=== PATIENT | female | born 2000 | race Caucasian/White ===

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

== ENCOUNTER → 2019-04-04 | Outpatient (CLI) | payer BC ==
[2019-04-04 15:30] LABS: Partial Thromboplastin Time 24.3 sec (22.0-30.0); Prothrombin Time 10.6 sec (9.0-12.0)
== END | disposition home or self-care (01) ==
LOC: LABWHC1 14:14
PROVIDERS: ATTEND Nurse Practitioner Family
DX: Z13.0 Encounter for screening for diseases of the blood and blood-forming organs and certain disorders involving the immune mechanism (principal); Z83.2 Family history of diseases of the blood and blood-forming organs and certain disorders involving the immune mechanism
CPT/HCPCS: 36415; 81241; 85610; 85730

== ENCOUNTER → 2019-04-27 | Outpatient (CLI) | payer BC ==
--- NOTE | 2019-04-27 16:57 | US ---
EXAMINATION TYPE: US pelvic complete DATE OF EXAM: 04/27/2019 COMPARISON: NONE CLINICAL HISTORY: E28.2 polycystic ovarian disease. Patient stated has not had menstrual cycle since 01-22-2019; patient not on hormones nor other medication; HT 5'4", WT 230lbs. TECHNIQUE: Transabdominal (TA). Transabdominal sonographic images of the pelvis were acquired. Date of LMP: 01/22/2019 EXAM MEASUREMENTS: Uterus: 7.6 x 3.8 x 2.8 cm Endometrial Stripe: 1.0 cm Right Ovary: 2.6 x 1.4 x 1.5 cm Left Ovary: 3.0 x 2.2 x 1.7 cm 1. Uterus: Anteverted 2. Endometrium: proliferative phase appearance to endometrium; unable to correlate thickness with No vember 2019 LMP 3. Right Ovary: multiple small follicles noted in periphery and within ovary with largest follicle s ize = 0.6 x 0.5 x 0.4cm. 4. Left Ovary: multiple small follicles noted in periphery and within ovary with largest follicle si ze = 0.5 x 0.4 x 0.3cm 5. Bilateral Adnexa: wnl 6. Posterior cul-de-sac: wnl IMPRESSION: Multiple peripherally oriented bilateral ovarian follicles in keeping with the patients h istory of PCOS. No ovarian cyst nor endometrial thickening.
== END | disposition home or self-care (01) ==
LOC: RADUSWWP 15:39
PROVIDERS: ATTEND Family Medicine
DX: E28.2 Polycystic ovarian syndrome (principal)
CPT/HCPCS: 76856

== ENCOUNTER 2019-05-23 20:12 | Emergency (ER) | payer BC ==
--- NOTE | 2019-05-23 21:08 | XR ---
EXAMINATION TYPE: XR chest 2V DATE OF EXAM: 05/23/2019 COMPARISON: NONE HISTORY: Cough and congestion TECHNIQUE: Frontal and lateral views of the chest are obtained. FINDINGS: There is no focal air space opacity, pleural effusion, or pneumothorax seen. The cardiac silhouette size is within normal limits. The osseous structures are intact. IMPRESSION: No acute cardiopulmonary process.
[2019-05-23 21:40] VITALS: BP 115/81; PULSE 91; RESP 18; TEMP 98.2
--- NOTE | 2019-05-23 21:48 | ED ---
General Adult HPI - General Chief complaint: Fever Stated complaint: Fever/Cough/SOB Time Seen by Provider: 05/23/19 20:25 Source: patient, RN notes reviewed, old records reviewed Mode of arrival: ambulatory Limitations: no limitations - History of Present Illness Initial comments: 19-year-old female patient presents to ED for evaluation of cough, sore throat. Patient reports that this has been ongoing for a week and she was on amoxicillin. Pt also reports that she has been having some mild diarrhea as well which is improving. Patient states that she is sitting on a couch today and began having some coughing and shortness of breath. Patient denies any chance of . Denies any fevers. Denies any other complaints. Systemic: Pt denies fatigue, fever/chills, rash. Pt denies weakness, night sweats, weight loss. Neuro: Pt denies headache, visual disturbances, syncope or pre-syncope. HEENT: Pt denies ocular discharge or irritation, otalgia, rhinorrhea, pharyngitis or notable lymphadenopathy. Cardiopulmonary: Pt denies chest pain, heart palpitations, dyspnea on exertion. Abdominal/GI: Pt denies abdominal pain, n/v/d. : Pt denies dysuria, burning w/ urination, frequency/urgency. Denies new onset urinary or bowel incontinence. MSK: Pt denies myalgia, loss of strength or function in extremities. Neuro: Pt denies new onset weakness, paresthesias. - Related Data Home Medications Medication Instructions Recorded Confirmed No Known Home Medications 01/13/18 01/13/18 Allergies Allergy/AdvReac Type Severity Reaction Status Date / Time No Known Allergies Allergy Verified 05/23/19 20:18 Review of Systems ROS Statement: Those systems with pertinent positive or pertinent negative responses have been documented in the HPI. ROS Other: All systems not noted in ROS Statement are negative. Past Medical History Past Medical History: No Reported History Additional Past Medical History / Comment(s): PCOS History of Any Multi-Drug Resistant Organisms: None Reported Past Surgical History: No Surgical Hx Reported Past Psychological History: No Psychological Hx Reported Smoking Status: Never smoker Past Alcohol Use History: None Reported Past Drug Use History: None Reported General Exam - General Exam Comments Initial Comments: Constitutional: NAD, AOX3, Pt has pleasant affect. HEENT: NC/AT, trachea midline, neck supple, no lymphadenopathy. Posterior pharynx non erythematous, without exudates. External ears appear normal, without discharge. Mucous membranes moist. Eyes PERRLA, EOM intact. There is no scleral icterus. No pallor noted. Cardiopulmonary: RRR, no murmurs, rubs or gallops, no JVD noted. Lungs CTAB in anterior and posterior [place]. No peripheral edema. Abdominal exam: Abdomen soft and non-distended. Abdomen non-tender to palpation in all 4 quadrants. Bowel sounds active in LLQ. No hepatosplenomegaly. No ecchymosis Neuro: CN II-XII intact. No nuchal rigidity. No raccon eyes, no carlson sign, no hemotympanum. No cervical spinal tenderness. MSK: No posterior calf tenderness bilaterally, homans sign negative bilaterally. Posterior tibialis and radial pulse +2 bilaterally. Sensation intact in upper and lower extremities. Full active ROM in upper and lower extremities, 5/5 stregnth. Limitations: no limitations Course Vital Signs 05/23/19 05/23/19 20:15 21:39 Temperature 99.0 F 98.2 F Pulse Rate 105 H 91 Respiratory 20 18 Rate Blood Pressure 158/109 115/81 O2 Sat by Pulse 99 99 Oximetry Medical Decision Making - Medical Decision Making 19-year-old female patient presents to ED for evaluation of cough, sore throat. Patient reports that this has been ongoing for a week and she was on amoxicillin. Pt also reports that she has been having some mild diarrhea as well which is improving. Patient states that she is sitting on a couch today and began having some coughing and shortness of breath. Patient denies any chance of . Denies any fevers. Denies any other complaints. Patient vital stable, afebrile. Physical exam did not demonstrate acute pathology. Chest x- ray displayed no acute process. On repeat evaluation patient reports feeling much improved. Pt denies risk factors for VTE. Patient will be advised to self quarantine the next 2 weeks, will follow up with primary care provider and will return to ER if condition worsens. Case discussed with Dr. Godinez. Disposition Clinical Impression: Cough, Sore throat Disposition: HOME SELF-CARE Condition: Stable Instructions (If sedation given, give patient instructions): Acute Cough (ED) Additional Instructions: Follow-up with primary care provider tomorrow. Recommend self quarantine the next 14 days. Return to ER if condition worsens. Is patient prescribed a controlled substance at d/c from ED?: No Referrals: Mp Gifford MD [Primary Care Provider] - 1-2 days
== END 2019-05-23 22:08 | disposition home or self-care (01) ==
LOC: EC 20:12
DX: J02.9 Acute pharyngitis, unspecified (principal); R05 Cough; R06.02 Shortness of breath; R19.7 Diarrhea, unspecified
CPT/HCPCS: 71046; 99284

== ENCOUNTER 2019-07-24 18:15 | Emergency (ER) | payer BC ==
[2019-07-24 18:43] VITALS: TEMP 98.1
[2019-07-24] MEDS ORDERED: ONDANSETRON 4 MG/2 ML VIAL IVP STA (19:30)
[2019-07-24] MEDS ORDERED: SODIUM CHLORIDE 0.9% 2,000 ML IV STA (19:30)
--- NOTE | 2019-07-24 20:09 | XR ---
EXAMINATION TYPE: XR KUB DATE OF EXAM: 07/24/2019 COMPARISON: NONE HISTORY: Abdominal pain TECHNIQUE: 2 views upright FINDINGS: Bowel gas pattern is normal. There is no sign of intestinal obstruction or pneumoperitoneum . Fecal pattern is normal. Lung bases are clear. There are no pathologic calcifications. IMPRESSION: Nonacute abdomen.
[2019-07-24 20:39] LABS: Basophils # (A) 0.1 k/uL (0-0.2); Basophils % (A) 0 %; Eosinophils # (A) 0.3 k/uL (0-0.7); Eosinophils % (A) 2 %; HGB 13.5 gm/dL (11.4-16.0); Lymphocytes % (A) 13 %; MCHC 32.1 g/dL (31.0-37.0); Mean Platelet Volume 6.9; Monocytes # (A) 0.8 k/uL (0-1.0); Monocytes % (A) 5 %; Neutrophils # (A) 12.8 k/uL (1.3-7.7); Neutrophils % (A) 80 %; Platelet Count 433 k/uL (150-450); RBC 5.19 m/uL (3.80-5.40); RDW 13.8 % (11.5-15.5); WBC 16.1 k/uL (4.0-11.0)
[2019-07-24] MEDS ORDERED: HYDROmorphone 0.5 MG/0.5 ML SYRINGE IVP STA (20:45)
[2019-07-24 20:51] LABS: ALT 12 U/L (4-34); AST 15 U/L (14-36); African American GFR (CKD) >90 (>60 ml/min/1.73 sqM); Albumin 4.5 g/dL (3.5-5.0); Alkaline Phosphatase 129 U/L (38-126); Amylase 36 U/L (30-110); Anion Gap 12 mmol/L; Blood Urea Nitrogen 17 mg/dL (7-17); Calcium 9.6 mg/dL (8.4-10.2); Carbon Dioxide 28 mmol/L (22-30); Chloride 98 mmol/L (98-107); Glucose 95 mg/dL (74-99); Non-African American GFR(CKD) >90 (>60 ml/min/1.73 sqM); Potassium 3.9 mmol/L (3.5-5.1); Sodium 138 mmol/L (137-145); Total Bilirubin 0.4 mg/dL (0.2-1.3); Total Protein 7.9 g/dL (6.3-8.2)
[2019-07-24 21:14] LABS: Amorphous Sediment,Urine Rare /hpf; Appearance,Urine Clear (Clear); Bacteria,Urine Moderate /hpf; Bilirubin,Urine Negative (Negative); Blood,Urine Small (Negative); Color,Urine Yellow; Glucose,Urine (UA) Negative (Negative); Ketones,Urine 1+ (Negative); Leukocyte Esterase,Urine Negative (Negative); Mucus,Urine Occasional /hpf; Nitrite,Urine Negative (Negative); Protein,Urine Trace (Negative); RBC,Urine 2 /hpf (0-5); Specific Gravity,Urine 1.029 (1.001-1.035); Squamous Epithelial Cell,Urine 2 /hpf (0-4); Urobilinogen,Urine <2.0 mg/dL (<2.0); WBC,Urine 11 /hpf (0-5)
[2019-07-24] MEDS ORDERED: diphenhydrAMINE 50 MG/ML 1 ML VIAL IVP STA (21:17)
[2019-07-24] MEDS ORDERED: METOCLOPRAMIDE 5 MG/ML 2 ML VIAL IVP STA (21:17)
--- NOTE | 2019-07-24 21:32 | ED ---
General Adult HPI - General Chief complaint: Nausea/Vomiting/Diarrhea Stated complaint: vomiting Time Seen by Provider: 07/24/19 19:12 Source: patient, RN notes reviewed Mode of arrival: ambulatory Limitations: no limitations - History of Present Illness Initial comments: 19-year-old female with a past medical history of PCOS presents to the emergency determine for a chief complaint of nausea vomiting. Patient had a tonsillectomy 07/[address] Guadalupe. Patient states that she has been feeling well however today he was very nauseous and she woke up and has been vomiting. She denies having abdominal pain except for burning with vomiting. Patient denies any fevers. States she feels like drainage from her throat.Patient has no other complaints at this time including shortness of breath, chest pain, abdominal pain, nausea or vomiting, headache, or visual changes. - Related Data Previous Rx's Medication Instructions Recorded Ondansetron [Zofran ODT] 4 mg PO Q8HR PRN #15 tab 07/24/19 Allergies Allergy/AdvReac Type Severity Reaction Status Date / Time No Known Allergies Allergy Verified 05/23/19 20:18 Review of Systems ROS Statement: Those systems with pertinent positive or pertinent negative responses have been documented in the HPI. ROS Other: All systems not noted in ROS Statement are negative. Past Medical History Past Medical History: No Reported History Additional Past Medical History / Comment(s): PCOS History of Any Multi-Drug Resistant Organisms: None Reported Past Surgical History: Tonsillectomy Past Psychological History: No Psychological Hx Reported Smoking Status: Never smoker Past Alcohol Use History: None Reported Past Drug Use History: None Reported General Exam Limitations: no limitations General appearance: alert, in no apparent distress Head exam: Present: atraumatic, normocephalic, normal inspection Eye exam: Present: normal appearance, PERRL, EOMI. Absent: scleral icterus, conjunctival injection, periorbital swelling ENT exam: Present: normal exam, mucous membranes moist, TM's normal bilaterally, normal external ear exam. Absent: normal oropharynx (Patient has scabbing noted to the posterior oropharynx however I do not see any obvious signs of infection. Appears normal for 5 day post tonsillectomy.) Neck exam: Present: normal inspection, full ROM. Absent: tenderness, meningismus, lymphadenopathy Respiratory exam: Present: normal lung sounds bilaterally. Absent: respiratory distress, wheezes, rales, rhonchi, stridor Cardiovascular Exam: Present: regular rate, normal rhythm, normal heart sounds. Absent: systolic murmur, diastolic murmur, rubs, gallop, clicks GI/Abdominal exam: Present: soft, normal bowel sounds. Absent: distended, tenderness, guarding, rebound, rigid Neurological exam: Present: alert Psychiatric exam: Present: normal affect, normal mood Course Vital Signs 07/24/19 07/24/19 18:40 21:40 Temperature 98.1 F Pulse Rate 109 H 96 Respiratory 18 181 H Rate Blood Pressure 106/73 103/62 O2 Sat by Pulse 98 98 Oximetry Medical Decision Making - Medical Decision Making Vitals are stable. Patient is afebrile. CBC does show mild leukocytosis which is likely reactive in nature given recent surgery. CMP unremarkable. Urinalysis is unremarkable as well. 1+ ketones. Patient already had a negative test 5 days ago for the surgery. X-ray KUB shows a nonacute abdomen. Patient was given 2 L of fluid as well as pain medication and antiemetics, feeling much better. Patient will be discharged home with starter pack of Zofran as well as a prescription of Zofran. Discussed with mother that at this time I do not see any obvious signs of infection in the posterior oropharynx ho wever I do recommend following up with Dr. Guadalupe first thing in the morning to hopefully have an office visit for recheck. If patient notices any worsening symptoms or fevers I do want her to return to the emergency room. Mother is agreeable with this. Patient tolerating oral intake on discharge. - Lab Data Result diagrams: 07/24/19 20:10 07/24/19 20:10 Lab Results 07/24/19 07/24/19 07/24/19 Range/Units 20:10 20:10 20:58 WBC 16.1 H (4.0-11.0) k/uL RBC 5.19 (3.80-5.40) m/uL Hgb 13.5 (11.4-16.0) gm/dL Hct 42.0 (34.0-46.0) % MCV 81.0 (80.0-100.0) fL MCH 26.0 (25.0-35.0) pg MCHC 32.1 (31.0-37.0) g/dL RDW 13.8 (11.5-15.5) % Plt Count 433 (150-450) k/uL Neutrophils % 80 % Lymphocytes % 13 % Monocytes % 5 % Eosinophils % 2 % Basophils % 0 % Neutrophils # 12.8 H (1.3-7.7) k/uL Lymphocytes # 2.0 (1.0-4.8) k/uL Monocytes # 0.8 (0-1.0) k/uL Eosinophils # 0.3 (0-0.7) k/uL Basophils # 0.1 (0-0.2) k/uL Sodium 138 (137-145) mmol/L Potassium 3.9 (3.5-5.1) mmol/L Chloride 98 (98-107) mmol/L Carbon Dioxide 28 (22-30) mmol/L Anion Gap 12 mmol/L BUN 17 (7-17) mg/dL Creatinine 0.60 (0.52-1.04) mg/dL Est GFR (CKD-EPI)AfAm >90 (>60 ml/min/1.73 sqM) Est GFR (CKD-EPI)NonAf >90 (>60 ml/min/1.73 sqM) Glucose 95 (74-99) mg/dL Calcium 9.6 (8.4-10.2) mg/dL Total Bilirubin 0.4 (0.2-1.3) mg/dL AST 15 (14-36) U/L ALT 12 (4-34) U/L Alkaline Phosphatase 129 H (38-126) U/L Total Protein 7.9 (6.3-8.2) g/dL Albumin 4.5 (3.5-5.0) g/dL Amylase 36 (30-110) U/L Lipase 51 (23-300) U/L Urine Color Yellow Urine Appearance Clear (Clear) Urine pH 6.0 (5.0-8.0) Ur Specific [place] 1.029 (1.001-1.035) Urine Protein Trace H (Negative) Urine Glucose (UA) Negative (Negative) Urine Ketones 1+ H (Negative) Urine Blood Small H (Negative) Urine Nitrite Negative (Negative) Urine Bilirubin Negative (Negative) Urine Urobilinogen <2.0 (<2.0) mg/dL Ur Leukocyte Esterase Negative (Negative) Urine RBC 2 (0-5) /hpf Urine WBC 11 H (0-5) /hpf Ur Squamous Epith Cells 2 (0-4) /hpf Amorphous Sediment Rare H (None) /hpf Urine Bacteria Moderate H (None) /hpf Urine Mucus Occasional H (None) /hpf Disposition Clinical Impression: Nausea and vomiting Disposition: HOME SELF-CARE Condition: Good Instructions (If sedation given, give patient instructions): Acute Nausea and Vomiting (ED) Additional Instructions: Please take Zofran as needed for nausea. Please follow-up with Dr. Guadalupe tomorrow. Hopefully he can see you during the day to recheck your throat. If you have any worsening symptoms overnight or develop fevers return to the emergency room. Prescriptions: Ondansetron [Zofran ODT] 4 mg PO Q8HR PRN #15 tab PRN Reason: Nausea Is patient prescribed a controlled substance at d/c from ED?: No Referrals: Mp Gifford MD [Primary Care Provider] - 1-2 days Time of Disposition: 21:51
[2019-07-24 21:42] VITALS: BP 103/62; PULSE 96
[2019-07-24] MEDS ORDERED: ONDANSETRON 4 MG ODT STARTER PACK 2 TAB BTL PO STA (21:52)
[2019-07-24 22:25] VITALS: RESP 18
== END 2019-07-24 22:31 | disposition home or self-care (01) ==
LOC: EC 18:15
DX: R11.2 Nausea with vomiting, unspecified (principal); D72.829 Elevated white blood cell count, unspecified
CPT/HCPCS: 36415; 80053; 82150; 83690; 85025; 81001; 87086; 74018; 99284; 96374; 96375 ×3; 96361 ×2; J1200; J2765; J2405; S0119; J1170

== ENCOUNTER → 2021-12-26 | Outpatient (CLI) | payer OTHER ==
--- NOTE | 2021-12-27 02:13 | MR ---
EXAMINATION TYPE: MR shoulder RT wo con DATE OF EXAM: 12/26/2021 COMPARISON: None HISTORY: Right shoulder popping and dislocating. Multiplanar multiecho imaging of the right shoulder performed with no contrast. There are small shoulder joint effusion and fluid around the subscapularis tendon. Subscapularis tend on is intact. Biceps tendon is intact. Glenoid chrissy appear normal. The supraspinatus tendon is intact. No retraction. The infraspinatus tendon is intact. The AC joint i s intact. Proximal humerus is intact. No fracture seen. No evidence of a soft tissue mass. IMPRESSION: No evidence of rotator cuff tear. No fracture seen. Slight increased joint fluid that could relate to some mild synovitis.
== END | disposition home or self-care (01) ==
LOC: RADMRIMAIN 19:07
PROVIDERS: ATTEND Physician Assistant
DX: M25.511 Pain in right shoulder (principal)

== ENCOUNTER 2022-06-04 22:33 | Emergency (ER) | payer OTHER, BC ==
[2022-06-04 22:50] VITALS: BP 125/84; PULSE 106; RESP 16; TEMP 98.5
[2022-06-04] MEDS ORDERED: KETOROLAC 15 MG/ML 1 ML VIAL IVP STA (23:00)
[2022-06-04] MEDS ORDERED: METOCLOPRAMIDE 5 MG/ML 2 ML VIAL IVP STA (23:00)
[2022-06-04] MEDS ORDERED: SODIUM CHLORIDE 0.9% 1,000 ML IV STA (23:00)
--- NOTE | 2022-06-04 23:33 | ED ---
Abdominal Pain HPI - General Source: patient, RN notes reviewed Mode of arrival: ambulatory Limitations: no limitations - History of Present Illness MD Complaint: abdominal pain Location: epigastric Associated Symptoms: nausea, vomiting <Denise Rodriguez - Last Filed: 06/05/22 01:07> <Jah Grajeda - Last Filed: 06/05/22 02:17> - General Chief Complaint: Abdominal Pain Stated Complaint: vomiting Time Seen by Provider: 06/04/22 22:52 - History of Present Illness Initial Comments: This is a 21-year-old female who presents to the emergency department for abdominal pain. Reports epigastric abdominal pain starting earlier today. She also has associated nausea and vomiting. States that the pain is what triggered the vomiting. The nausea and vomiting has since stopped, however she continues to have the epigastric pain. Believes that this may have happened shortly after eating, but cannot recall what she ate. She had a similar episode in April that seemed to improve in a couple of days. She was not evaluated at that time and she has not had any imaging. Denies any changes in bowel or bladder habits. Denies any fevers, chills, sore throat, cough, dyspnea, chest pain, palpitations, diarrhea, back pain, or headaches. (Denise Rodriguez) - Related Data Previous Rx's Medication Instructions Recorded Ondansetron [Zofran ODT] 4 mg PO Q8HR PRN #15 tab 07/24/19 Allergies Allergy/AdvReac Type Severity Reaction Status Date / Time No Known Allergies Allergy Verified 06/04/22 22:46 Review of Systems ROS Other: All systems not noted in ROS Statement are negative. <Denise Rodriguez - Last Filed: 06/05/22 01:07> ROS Other: All systems not noted in ROS Statement are negative. <Jah Grajeda - Last Filed: 06/05/22 02:17> ROS Statement: Those systems with pertinent positive or pertinent negative responses have been documented in the HPI. Past Medical History Past Medical History: No Reported History Additional Past Medical History / Comment(s): PCOS History of Any Multi-Drug Resistant Organisms: None Reported Past Surgical History: Tonsillectomy Past Psychological History: No Psychological Hx Reported Smoking Status: Never smoker Past Alcohol Use History: None Reported Past Drug Use History: Marijuana <Denise Rodriguez - Last Filed: 06/05/22 01:07> General Exam Limitations: no limitations General appearance: alert, in no apparent distress Head exam: Present: atraumatic, normocephalic, normal inspection Respiratory exam: Present: normal lung sounds bilaterally. Absent: respiratory distress, wheezes, rales, rhonchi, stridor Cardiovascular Exam: Present: regular rate, normal rhythm, normal heart sounds. Absent: systolic murmur, diastolic murmur, rubs, gallop, clicks GI/Abdominal exam: Present: soft, tenderness (epigastric), normal bowel sounds. Absent: distended Neurological exam: Present: alert, oriented X3, CN II-XII intact Psychiatric exam: Present: normal affect, normal mood Skin exam: Present: warm, dry, intact, normal color. Absent: rash <Denise Rodriguez - Last Filed: 06/05/22 01:07> Course Vital Signs 06/04/22 22:46 Temperature 98.5 F Pulse Rate 106 H Respiratory 16 Rate Blood Pressure 125/84 O2 Sat by Pulse 98 Oximetry Medical Decision Making - Lab Data Result diagrams: 06/04/22 23:48 06/04/22 23:48 - Radiology Data Radiology results: report reviewed, image reviewed <Denise Rodriguez - Last Filed: 06/05/22 01:07> - Lab Data Result diagrams: 06/04/22 23:48 06/04/22 23:48 <Jah Grajeda - Last Filed: 06/05/22 02:17> - Medical Decision Making This is a 22-year-old female who presents to the emergency department for ab dominal pain. Was pt. sent in by a medical professional or institution? @ -No Did you speak to anyone other than the patient for history? @ -No Did you review nursing and triage notes? @ -Yes, and I agree, it is accurate with regards to the patient's symptoms. Were old charts reviewed? @ -No Differential Diagnosis? @ -Differential Abdominal Pain Women: Appendicitis, Cholecystitis, diverticulosis, ischemic bowel, pancreatitis, hepatitis, UTI, gastroenteritis, AAA, incarcerated hernia, bowel obstruction, constipation, inflammatory bowel, hepatitis, peptic ulcer disease, splenic infarction, perforated viscus, vulvitis, ovarian torsion, PID, kidney stone, placenta abruption, this is not meant to be an all-inclusive list U/S interpreted by me (1pt. min.)? @ -Gallbladder US obtained. My interpretation identifies no evidence of gallbladder wall thickening or cholelithiasis. What testing was considered but not performed? (CT, X-rays, U/S, labs)? Why? @ -None What meds were considered but not given? Why? @ -None Did you discuss the management of the patient with other professionals? @ -No Did you reconcile home meds? @ -No Was smoking cessation discussed for >3mins.? @ -No Was critical care preformed (if so, how long)? @ -No Were there social determinants of health that impacted care today? How? (Homelessness, low income, unemployed, alcoholism, drug addiction, transportation, low edu. Level, literacy, decrease access to med. care, group home, rehab)? @ -No Was there de-escalation of care discussed even if they declined? (Discuss DNR or withdrawal of care, Hospice)? @ -No What co-morbidities impacted this encounter? (DM, HTN, Smoking, COPD, CAD, Cancer, CVA, Hep., AIDS, mental health diagnosis, sleep apnea, morbid obesity)? @ -Morbid obesity Was patient admitted / discharged? @ -Lab work obtained and found to be nonactionable. Patient given IV fluids, Toradol, and Zofran. Case signed out to ED attending, Dr. Grajeda at shift completion. Gallbladder ultrasound ordered with results pending at sign out of the case. Undiagnosed new problem with uncertain prognosis? @ -None Drug Therapy requiring intensive monitoring for toxicity (Heparin, Nitro, Insulin, Cardizem)? @ -None Were any procedures done? @ -None Diagnosis/symptom? @ -[default] Acute, or Chronic, or Acute on Chronic? @ -[default] Uncomplicated (without systemic symptoms) or Complicated (systemic symptoms)? @ -[default] Side effects of treatment? @ -[none] Exacerbation, Progression, or Severe Exacerbation] @ -Not applicable Poses a threat to life or bodily function? @ -[no] (Denise Rodriguez) Patient is sent out to me by previous shift physician orthopedic assistant, Ana payne. Plans and also follow-up with pending gallbladder ultrasound. Labs were reviewed. Found to be unremarkable. Ultrasound shows findings consistent with hepatic steatosis. Patient evaluated bedside to 11 AM finally stable medical condition. Patient be discharge. Advised follow-up with primary care doctor. (Jah Grajeda) - Lab Data Lab Results 06/04/22 06/04/22 06/04/22 Range/Units 23:48 23:48 23:48 WBC 10.2 (3.8-10.6) k/uL RBC 5.05 (3.80-5.40) m/uL Hgb 13.2 (11.4-16.0) gm/dL Hct 40.2 (34.0-46.0) % MCV 79.6 L (80.0-100.0) fL MCH 26.1 (25.0-35.0) pg MCHC 32.8 (31.0-37.0) g/dL RDW 14.3 (11.5-15.5) % Plt Count 395 (150-450) k/uL MPV 6.9 Neutrophils % 80 % Lymphocytes % 12 % Monocytes % 4 % Eosinophils % 3 % Basophils % 0 % Neutrophils # 8.2 H (1.3-7.7) k/uL Lymphocytes # 1.3 (1.0-4.8) k/uL Monocytes # 0.4 (0-1.0) k/uL Eosinophils # 0.3 (0-0.7) k/uL Basophils # 0.0 (0-0.2) k/uL Sodium 139 (137-145) mmol/L Potassium 3.9 (3.5-5.1) mmol/L Chloride 101 (98-107) mmol/L Carbon Dioxide 27 (22-30) mmol/L Anion Gap 11 mmol/L BUN 12 (7-17) mg/dL Creatinine 0.50 L (0.52-1.04) mg/dL Est GFR (CKD-EPI)AfAm >90 (>60 ml/min/1.73 sqM) Est GFR (CKD-EPI)NonAf >90 (>60 ml/min/1.73 sqM) Glucose 106 H (74-99) mg/dL Plasma Lactic Acid Brendan 1.4 (0.7-2.0) mmol/L Calcium 8.8 (8.4-10.2) mg/dL Total Bilirubin 0.7 (0.2-1.3) mg/dL AST 25 (14-36) U/L ALT 26 (4-34) U/L Alkaline Phosphatase 102 (38-126) U/L Total Protein 7.6 (6.3-8.2) g/dL Albumin 4.4 (3.5-5.0) g/dL Amylase 45 (30-110) U/L Lipase 42 (23-300) U/L Urine Color Urine Appearance (Clear) Urine pH (5.0-8.0) Ur Specific [place] (1.001-1.035) Urine Protein (Negative) Urine Glucose (UA) (Negative) Urine Ketones (Negative) Urine Blood (Negative) Urine Nitrite (Negative) Urine Bilirubin (Negative) Urine Urobilinogen (<2.0) mg/dL Ur Leukocyte Esterase (Negative) Urine RBC (0-5) /hpf Urine WBC (0-5) /hpf Ur Squamous Epith Cells (0-4) /hpf Urine Bacteria (None) /hpf Urine Mucus (None) /hpf Urine HCG, Qual (Not Detectd) 06/05/22 06/05/22 Range/Units 00:06 00:06 WBC (3.8-10.6) k/uL RBC (3.80-5.40) m/uL Hgb (11.4-16.0) gm/dL Hct (34.0-46.0) % MCV (80.0-100.0) fL MCH (25.0-35.0) pg MCHC (31.0-37.0) g/dL RDW (11.5-15.5) % Plt Count (150-450) k/uL MPV Neutrophils % % Lymphocytes % % Monocytes % % Eosinophils % % Basophils % % Neutrophils # (1.3-7.7) k/uL Lymphocytes # (1.0-4.8) k/uL Monocytes # (0-1.0) k/uL Eosinophils # (0-0.7) k/uL Basophils # (0-0.2) k/uL Sodium (137-145) mmol/L Potassium (3.5-5.1) mmol/L Chloride (98-107) mmol/L Carbon Dioxide (22-30) mmol/L Anion Gap mmol/L BUN (7-17) mg/dL Creatinine (0.52-1.04) mg/dL Est GFR (CKD-EPI)AfAm (>60 ml/min/1.73 sqM) Est GFR (CKD-EPI)NonAf (>60 ml/min/1.73 sqM) Glucose (74-99) mg/dL Plasma Lactic Acid Brendan (0.7-2.0) mmol/L Calcium (8.4-10.2) mg/dL Total Bilirubin (0.2-1.3) mg/dL AST (14-36) U/L ALT (4-34) U/L Alkaline Phosphatase (38-126) U/L Total Protein (6.3-8.2) g/dL Albumin (3.5-5.0) g/dL Amylase (30-110) U/L Lipase (23-300) U/L Urine Color Yellow Urine Appearance Cloudy H (Clear) Urine pH 7.5 (5.0-8.0) Ur Specific [place] 1.028 (1.001-1.035) Urine Protein 1+ H (Negative) Urine Glucose (UA) Negative (Negative) Urine Ketones 1+ H (Negative) Urine Blood Large H (Negative) Urine Nitrite Negative (Negative) Urine Bilirubin Negative (Negative) Urine Urobilinogen 2.0 (<2.0) mg/dL Ur Leukocyte Esterase Negative (Negative) Urine RBC 4 (0-5) /hpf Urine WBC 6 H (0-5) /hpf Ur Squamous Epith Cells 9 H (0-4) /hpf Urine Bacteria Occasional H (None) /hpf Urine Mucus Many H (None) /hpf Urine HCG, Qual Not Detected (Not Detectd) Disposition <Denise Rodriguez - Last Filed: 06/05/22 01:07> Is patient prescribed a controlled substance at d/c from ED?: No Time of Disposition: 02:17 <Jah Grajeda - Last Filed: 06/05/22 02:17> Clinical Impression: Abdominal pain Disposition: HOME SELF-CARE Condition: Good Instructions (If sedation given, give patient instructions): Non-Alcoholic Fatty Liver Disease (ED) Referrals: Vero Malin MD [STAFF PHYSICIAN] - 1-2 days
[2022-06-05] MEDS ORDERED: MAG HYDROX/AL HYDROX/SIMETH 30 ML, HYOSCYAMINE ELIXIR 10 ML, LIDOCAINE VISCOUS 2% 10 ML PO STA ×3 (00:01)
[2022-06-05 00:04] LABS: Basophils % (A) 0 %; Eosinophils # (A) 0.3 k/uL (0-0.7); Eosinophils % (A) 3 %; HCT 40.2 % (34.0-46.0); HGB 13.2 gm/dL (11.4-16.0); Lymphocytes # (A) 1.3 k/uL (1.0-4.8); Lymphocytes % (A) 12 %; MCH 26.1 pg (25.0-35.0); MCHC 32.8 g/dL (31.0-37.0); MCV 79.6 fL (80.0-100.0); Mean Platelet Volume 6.9; Monocytes # (A) 0.4 k/uL (0-1.0); Monocytes % (A) 4 %; Neutrophils # (A) 8.2 k/uL (1.3-7.7); Neutrophils % (A) 80 %; Platelet Count 395 k/uL (150-450); RBC 5.05 m/uL (3.80-5.40); RDW 14.3 % (11.5-15.5); WBC 10.2 k/uL (3.8-10.6)
[2022-06-05 00:11] LABS: ALT 26 U/L (4-34); AST 25 U/L (14-36); African American GFR (CKD) >90 (>60 ml/min/1.73 sqM); Albumin 4.4 g/dL (3.5-5.0); Alkaline Phosphatase 102 U/L (38-126); Amylase 45 U/L (30-110); Anion Gap 11 mmol/L; Blood Urea Nitrogen 12 mg/dL (7-17); Calcium 8.8 mg/dL (8.4-10.2); Carbon Dioxide 27 mmol/L (22-30); Chloride 101 mmol/L (98-107); Glucose 106 mg/dL (74-99); Lipase 42 U/L (23-300); Non-African American GFR(CKD) >90 (>60 ml/min/1.73 sqM); Potassium 3.9 mmol/L (3.5-5.1); Sodium 139 mmol/L (137-145); Total Bilirubin 0.7 mg/dL (0.2-1.3); Total Protein 7.6 g/dL (6.3-8.2)
[2022-06-05 00:41] LABS: Appearance,Urine Cloudy (Clear); Bacteria,Urine Occasional /hpf; Bilirubin,Urine Negative (Negative); Blood,Urine Large (Negative); Color,Urine Yellow; Glucose,Urine (UA) Negative (Negative); Ketones,Urine 1+ (Negative); Leukocyte Esterase,Urine Negative (Negative); Mucus,Urine Many /hpf; Nitrite,Urine Negative (Negative); PH, Urine 7.5 (5.0-8.0); Protein,Urine 1+ (Negative); RBC,Urine 4 /hpf (0-5); Specific Gravity,Urine 1.028 (1.001-1.035); Squamous Epithelial Cell,Urine 9 /hpf (0-4); WBC,Urine 6 /hpf (0-5)
--- NOTE | 2022-06-05 02:05 | US ---
EXAM: US Abdomen Limited, Gallbladder CLINICAL HISTORY: ITS.REASON US Reason: Epigastric pain TECHNIQUE: Real-time ultrasound of the right upper quadrant with image documentation. COMPARISON: None FINDINGS: Liver: Liver measures 15.9 cm. Increased echogenicity of the liver is suggestive of hepatic steatosis. Gallbladder: No gallstones or sludge. No gallbladder wall thickening or pericholecystic fluid. Negative sonographic Aguirre's sign. Common bile duct: Unremarkable as visualized. No stones. No dilation. Normal common bile duct measuring 2.9 mm. Pancreas: Evaluation of the pancreas is limited by overlying bowel gas. Right kidney: Right kidney measures 11.9 cm in length. No hydronephrosis or stone. Free fluid: No ascites. IMPRESSION: Increased echogenicity of the liver is suggestive of hepatic steatosis.
== END 2022-06-05 02:40 | disposition home or self-care (01) ==
LOC: EC 22:33
DX: R10.13 Epigastric pain (principal); F12.90 Cannabis use, unspecified, uncomplicated
CPT/HCPCS: 36415; 80053; 82150; 83605; 83690; 85025; 81001; 81025; 76705; 99284; 96374; 96375; 96361; J2765; J1885

== ENCOUNTER → 2024-02-03 | Outpatient (CLI) | payer BC ==
--- NOTE | 2024-02-03 15:50 | US ---
EXAMINATION TYPE: US transvaginal DATE OF EXAM: 02/03/2024 COMPARISON: Pelvic ultrasound 04/27/2019 CLINICAL INDICATION: Female, 23 years old with history of N92.6 IRREGULAR MENSTRUATION, UNSPECIFIED; Irregular menses, PCOS TECHNIQUE: Transvaginal (TV). Transvaginal grayscale sonographic images of the pelvis were acquired. Doppler imaging: Not performe d. FINDINGS: Date of LMP: 12/01/23, vaginal bleeding for 2 months EXAM MEASUREMENTS: Uterus: 6.5 x 3.2 x 4.2 cm Endometrial Stripe: 0.7 cm Right Ovary: 3.5 x 1.8 x 1.9 cm Left Ovary: 2.8 x 2.6 x 2.3 cm 1. Uterus: Anteverted fluid collection REJI = 1.0cm 2. Endometrium: appears wnl 3. Right Ovary: multiple follicles 4. Left Ovary: multiple follicles 5. Bilateral Adnexa: wnl 6. Posterior cul-de-sac: wnl Anteverted uterus with small amount of simple appearing fluid within the lower uterine segment. Endom etrium is within normal limits. Multiple peripheral follicles within both ovaries. No free fluid. IMPRESSION: 1. Small amount of simple fluid within the lower uterine segment. 2. Endometrium is within normal thickness. 3. Multiple peripherally oriented bilateral overt follicles which is consistent reported history of P COS. [facility], , 02/03/2024 3:48 PM
== END | disposition home or self-care (01) ==
LOC: RADUSWWP 14:55
PROVIDERS: ATTEND Family Medicine
DX: N92.6 Irregular menstruation, unspecified (principal); E28.2 Polycystic ovarian syndrome
CPT/HCPCS: 76830